=== PATIENT | female | born 1990 | race Hispanic/Latino ===

== ENCOUNTER 2016-10-13 10:23 | Inpatient (IN) | payer MEDICAID ==
[~2016-10-13] VITALS: Ht 152.4 cm; Wt 65.8 kg
[~2016-10-13 10:23] MED LIST: FERR250C3 PO; IBUP-1149 PO; NOMED; PREN1TAB60 PO; [UNRECOGNIZED DRUG - CODE] PO
[2016-10-13] MEDS ORDERED: Lactated Ringer's 1,000 ML IV PRN ×2 (11:22→12:18)
[2016-10-13] MEDS ORDERED: fentaNYL-PF 50 mCg/mL 2 mL Inj IVPUSH PRN ×2 (11:25→12:30)
[2016-10-13] MEDS ORDERED: Oxytocin 30 Units/500 mL LR 30 UNITS in IV Premix 1 EACH IV PRN ×2 (11:25→15:45)
[2016-10-13] MEDS ORDERED: Methylergonovine 0.2 mg/mL Inj IM PRN (11:25)
[2016-10-13] MEDS ORDERED: Oxytocin 10 Unit/mL Inj IM PRN (11:25)
[2016-10-13] MEDS ORDERED: Hemorrhage Kit, Post Partum XX ONE ×3 (11:25→15:45)
[2016-10-13] MEDS ORDERED: Sodium Chloride LOK Flush 10 mL Syringe IVFLUSH PRN (11:25)
[2016-10-13] MEDS ORDERED: Carboprost 250 mCg/mL Inj IM PRN (11:25)
[2016-10-13 12:01] LABS: Mean Corpuscular Hemoglobin 30.2 pg (27.0-35.0)
[2016-10-13] MEDS ORDERED: Lactated Ringer's 500 ML IV ONE (12:28)
--- NOTE | 2016-10-13 12:28 | PCM.HPOB ---
Subjective Date of Service: Oct 13, 2016 Referring Provider: Admitting Physician: Carla Franco MD Primary Care Physician: Judy Adler PA-C Attending Physician: Carla Franco MD Chief Complaint contractions. History of Present History of Present Illness 25 Yo at 29 w1d by CONCHITA 10/18/16 by 9 weeks US. 1. Limited parental care. 2. elevated 1 hr GTT , 3 hrs GTT WNL. 3. Transfer of care at 36 weeks form . 4. Hx of E coli in , ALYSSA negative. 5. GBS negative. Regular contractions cervix was 4 CM/BBW at presentation and in reassessment cervix 5-6/80%/BBOW Cephalic presentation confirmed with US. Past Medical History Obstetrical History: Hx of 4 with no complications Weight 7-8.5 lb. Had epidural in the last delivery. Gynecologic History: menarche at age 14 regular menses. Pap ASCUS 1015. Medical History: denies Asthma , HTN or DM Surgical History: none Hx Tobacco Use: No Hx Alcohol Use: No Hx Substance Use: No Past Family History Family History Sister has twins. Review of Systems ROS 11 points ROS is negative except for the items in HPI. Allergy Coded Allergies: No Known Allergies (Verified Allergy, Unknown, 11/29/14) Exam Vital Signs 102/66, HR 86, T 36.5, RR 16 Exam 130 moderate variability positive accelerations and no decelerations. Category 1 [place] contractions every 1-2 min Constitutional: Well-developed HEENT: Atraumatic Heart: Normal S1, Normal S2 Extremities: Pulses Palpable x4, No Edema Neurological/Psychiatric: Alert, Oriented X3 Neuro: Normal DTRs Additional Information 5-6cm/80%/-3/BBOW Labs/Diagnostics Maternal Blood Type: O (positive) Hx Rho(D) Immune Globulin: No Group B Strep Results: Negative (09/18/16) Rubella: Immune Additional Information RPR negative, HbsAg negative, HIV negative. 3 hrs GTT(81, 115, 152) pap smear 09.18.16 WNL OB Intrapartum Assessment/Plan Assessment 25 Yo at 29 w1d by CONCHITA 10/18/16 by 9 weeks US. 1. Limited parental care. 2. elevated 1 hr GTT , 3 hrs GTT WNL. 3. Transfer of care at 36 weeks form . 4. Hx of E coli in , ALYSSA negative. 5. GBS negative. Pain Management: admit with orders and labs. Carla Franco MD Oct 13, 2016 12:28
[2016-10-13] MEDS ORDERED: EPHEDrine Sulfate 50 mg/mL Inj IVPUSH PRN (12:30)
[2016-10-13] MEDS ORDERED: Phenylephrine/NS-PF 100 mCg/mL 5 mL Syringe IVPUSH PRN (12:30)
[2016-10-13] MEDS ORDERED: fentaNYL 2 mCg/mL-Bupiv 0.125% 100 ML EPIDURAL SCH (12:30)
[2016-10-13] MEDS ORDERED: Atropine 1 mg/10 mL (Code) Syringe IVPUSH PRN (12:30)
[2016-10-13] MEDS ORDERED: Ondansetron 2 mg/mL 2 mL Inj IVPUSH PRN (12:30)
[2016-10-13] MEDS: Lactated Ringer's 1,000 ML IV SCH ×2 (12:31→13:10)
--- NOTE | 2016-10-13 12:31 | PCM.HPANE ---
Patient Data Surgeon Admitting Provider:Carla Franco MD Attending Provider:Carla Franco MD Primary Care Physician:Judy Adler PA-C Other Provider:Dennis Barrera Anesthesia Reason for Visit Early Labor EARLY LABOR Ht/WT & BMI Body Mass Index Allergies Coded Allergies: No Known Allergies (Verified Allergy, Unknown, 11/29/14) Diabetes History Hx Diabetes?: No Medications Hypertension Medication: No Home Meds Incl Beta Sandro: No Active Scripts IBUPROFEN-Expunged Drug, Do Not Renew! 600 Mg [id number] Mg PO Q6HP #20 TAB FOR FEVER OR PAIN Prov:Hieu Arguello MD 02/02/13 Reported Medications Amoxicillin 250 Mg Smin565 Mg PO 02/18/13 Pnv With Ca,No.72/Iron/Fa-Expunged Drug, Do N ( Plus-Expunged Drug, Do Not Renew!)1 Each Tablet1 Each PO 02/18/13 Ferrous Sulfate-Expunged Drug, Do Not Renew! 250 Mg Capsule.sa325 Mg PO 02/18/13 No Historical Medication Ea 05/25/12 History Hx of Heart Problems?: No Hx of Respiratory Problem?: No Hx Alcohol Use: NoHx Substance Use: No Smoking Status: Never Smoker Stop/Bang Risk Assessment Category Category 1A: Patient has history of documented sleep apnea, and HAS NOT received any narcotic, sedative or anesthesia administration during this stay. Category 1B: Patient has history of documented sleep apnea, and HAS received any narcotic , sedative or anesthesia administration during this stay Category 2: Patient has SUSPECTED Obstructive Sleep Apnea, and HAS received any narcotic , sedative or anesthesia administration during this stay. Category 3: Patient has SUSPECTED Obstructive Sleep Apnea and HAS NOT received narcotic, sedative or anesthesia administration during this stay. Category 4: Outpatient in Procedural Areas with known sleep apnea or who screen positive for High Risk via the STOP/BANG questionnaire. Exam Exam General Appearance: Alert, Oriented X3, Cooperative, Moderate Distress (with contractions) HEENT/AIRWAY: MP 1 Lungs: Normal Air Movement Heart: Exam Unremarkable Meds/Labs/Diagnostics Labs Test 10/13/16 11:15 Plan Impression Patient chart reviewed, patient interviewed and anesthestic plan with risks, benefits, and alternatives discussed, and informed consent obtained. ASA Physical Status: ASA1 Normal Healthy Anesthetic Plan: Epidural Bene/Risks/Altern/Consents: Yes HP Complete Prior to Induction: Yes Hugh Aguila MD Oct 13, 2016 12:31
[2016-10-13] MEDS ORDERED: Lactated Ringer's 1,000 ML IV SCH (15:41)
[2016-10-13] MEDS ORDERED: oxyCODONE-Acetamin 5-325 mg Tablet PO PRN (15:45)
[2016-10-13] MEDS ORDERED: Witch Hazel-Glycerin Pads TOPICAL PRN (15:45)
[2016-10-13] MEDS ORDERED: LANOlin HPA 7 Gm Ointment TOPICAL PRN (15:45)
--- NOTE | 2016-10-13 16:02 | PCM.DIOB ---
Obstetrical Disch Instruction Date of Service: Oct 14, 2016 Dates of Hospitalization Date of Hospital Admission Oct 13, 2016 at 10:54 Providers Admitting Physician: Carla Franco MD Primary Care Physician: Judy Adler PA-C Attending Physician: Carla Franco MD Discharge Diagnosis Discharge Diagnosis Status post spontaneous vaginal delivery. Post Operative diagnosis Status post spontaneous vaginal delivery. Problems: Diet Discharge Diet: No restrictions Activity Discharge Activity-General: Pelvic Rest for 6 weeks (No sex, no douching and no tampons. ), Be up and about, Balance rest and activity, No lifting >10 pounds for 4-6 weeks Dressing and Incisional Care Hygiene: May shower, Perineal care, Sitz bath, Dermoplast spray, Witch Stormy pads Follow Up Plan Follow-up Provider (F9): Carla Franco MD Follow-up appointment: Weeks (2 ) Call your provider for: Fever or Chills, Shortness of breath, Heavy vaginal bleeding, Heavy bleeding, Epigastric pain, Excessive constipation, Vaginal discomfort, Red painful breasts, Other (Headache, change in vision, nausea or vomiting , leg swelling or pain. ) Carla Franco MD Oct 13, 2016 16:02
[2016-10-13] MEDS ORDERED: DOCU-41 PO (16:06)
[2016-10-13] MEDS ORDERED: IBUP-1827 PO (16:06)
[2016-10-13] MEDS ORDERED: OXYC1TAB24 PO (16:06)
--- NOTE | 2016-10-13 16:08 | PCM.DC.OB ---
Obstetrical Discharge Summary Date of Service Oct 14, 2016 Date of hospital admission Oct 13, 2016 at 10:54 Date of Discharge: Oct 14, 2016 Providers Admitting Physician: Leon Saeed MD Primary Care Physician: Judy Adler PA-C Attending Physician: Leon Saeed MD Diagnosis at Time of Discharge Status post spontaneous vaginal delivery. Mild anemia Problems: Brief History and Physical: 25 YO was admitted at 39 w1d by CONCHITA 10/18/16 by 9 weeks US with active labor and history of: 1. Limited parental care. 2. elevated 1 hr GTT , 3 hrs GTT WNL. 3. Transfer of care at 36 weeks form . 4. Hx of E coli in , ALYSSA negative. 5. GBS negative. Regular contractions cervix was 4 CM/BBW at presentation and in reassessment cervix 5-6/80%/BBOW Cephalic presentation confirmed with US. Hospital Course: Patient progressed spontaneously in labor. She had spontaneous rupture of membranes at 1315. Cervix was 8 cm at 1338 and 90% effaced and -2. The patient was comfortable on epidural until she had a precipitous vaginal delivery on October 13, 2016 at 1518 Outcome: Outcome is a male infant , weight 3791g with Apgars 9 at one minute and 9 at five minutes. No nuchal cord. See delivery note for details. Discharge Day Exam: 10/14/2016 Lochia: Normal Pain Management: PO pain meds, Good Pain Control Gastrointestinal: Good Appetite, No N/V Postop Activity: Ambulate without Assist OB Exam Exam Vital Signs Vital Signs VS: 82/53, pulse 65, RR 16, T 36.4, PSO2 100% on RA. Exam Abdomen: Fundus firm Extremities: No edema Lungs: Clear to Auscultation Heart: Normal S1, Normal S2 General: Alert, Oriented X3 Labs: Maternal Blood Type: O (positive) Group B Strep Results: Negative (09/18/16) Rubella: Immune Additional Information RPR negative, HbsAg negative, HIV negative. 3 hrs GTT(81, 115, 152) pap smear 1..17 WNL Laboratory Tests 72 Hours Test 10/13/16 11:15 10/14/16 06:33 White Blood Count 7.9th/mm3 (3.8-10.1) 9.4th/mm3 (3.8-10.1) Red Blood Count 3.98mil/mm3 (3.90-5.20) 3.53mil/mm3 (3.90-5.20) Hemoglobin 12.0g/dL (12.0-15.6) 10.8g/dL (12.0-15.6) Hematocrit 37.0% (35.0-46.0) 33.1% (35.0-46.0) Mean Corpuscular Volume 93.0fL (81-100) 93.8fL (81-100) Mean Corpuscular Hemoglobin 30.2pg (27.0-35.0) 30.6pg (27.0-35.0) Mean Corpuscular Hemoglobin Concent 32.4% (32.0-37.0) 32.6% (32.0-37.0) Red Cell Distribution Width 15.1% (12.3-15.4) 15.0% (12.3-15.4) Platelet Count 217bil/L (150-400) 193bil/L (150-400) Ascorbic Acid (Vitamin C) 250 Mg Tab.chew 500 MG PO DAILY Prescribed by: LEON SAEED MD Docusate Sodium (Colace) 100 Mg Capsule 100 MG PO DAILY Prescribed by: LEON SAEED MD Ferrous Sulfate (Ferrous Sulfate) 325 Mg Tablet 325 MG PO DAILY Prescribed by: LEON SAEED MD Ibuprofen (Ibuprofen) 600 Mg Tablet 600 MG PO Q6H PRN PRN For Mild Pain Prescribed by: LEON SAEED MD Pnv With Ca,No.72/Iron/Fa-Expunged Drug, Do N ( Plus-Expunged Drug, Do Not Renew!) 1 Each Tablet 1 EACH PO (Reported) oxyCODONE-Acetaminophen 5-325 mg (oxyCODONE-Acetaminophen 5-325 mg) 1 Each Tablet 1-2 TAB PO Q4H PRN PRN For Pain Prescribed by: LEON SAEED MD Discontinued Medications Amoxicillin (Amoxicillin) 250 Mg Chew 500 MG PO (Reported) Ferrous Sulfate-Expunged Drug, Do Not Renew! (Ferrous Sulfate-Expunged Drug, Do Not Renew!) 250 Mg Capsule.sa 325 MG PO (Reported) IBUPROFEN-Expunged Drug, Do Not Renew! (IBUPROFEN-Expunged Drug, Do Not Renew!) 600 Mg Tablet 600 MG PO Q6HP FOR FEVER OR PAIN Prescribed by: BANDAR BROCK MD No Historical Medication (No Historical Medication) Ea (Reported) Disposition Disposition: home. Discharge status: stable. Diet Discharge Diet: No restrictions Activity Discharge Activity-General: Be up and about, Balance rest and activity, No lifting >10 pounds for 4-6 weeks. Pelvic rest for 6 weeks. Dressing and Incisional Care Hygiene: May shower, Perineal care, Sitz bath, Dermoplast spray, Witch Stormy pads Follow Up Plan Follow-up Provider (F9): Leon Saeed MD Follow-up appointment: Weeks (2 ) Call your provider for: Fever or Chills, Shortness of breath, Heavy vaginal bleeding, Heavy bleeding, Epigastric pain, Excessive constipation, Vaginal discomfort, Red painful breasts, Other (Headache, change in vision, nausea or vomiting , leg swelling or pain. ) Leon Saeed MD Oct 13, 2016 16:08
[2016-10-13] MEDS ORDERED: Sodium Chloride LOK Flush 10 mL Syringe IVFLUSH SCH (16:30)
--- NOTE | 2016-10-13 16:34 | OP ---
[address] [address] OPERATIVE REPORT PATIENT: DARLENE HUMPHREY : 1990 MR#: [id number] ADMIT: 10/13/2016 JOB ID: [id number] DATE OF SURGERY: 10/13/2016 PREOPERATIVE DIAGNOSIS(ES): Intrauterine at 39 weeks and 1 day with expected date of delivery of October 18, 2016. POSTOPERATIVE DIAGNOSIS(ES): Intrauterine at 39 weeks and 1 day with expected date of delivery of October 18, 2016. PROCEDURE: Spontaneous vaginal delivery. SURGEON: Carla Franco MD OLERICULTURIST: Dr. Paramjit Tamayo, Resident ESTIMATED BLOOD LOSS: 150 mL. COMPLICATIONS: None. PROCEDURE: This is a 25-year-old 5, para 4-0-0-4 at 39 weeks and 1 day with CONCHITA of October 18, 2016 by 9 week ultrasound presented in active labor. GBS negative status. Cervix on admission was 4 cm, 80%, -4. That was at 11 a.m. Then she progressed in labor to be 5-6 cm. One hour later she received epidural. Then she had spontaneous rupture of membranes at 1315. Cervix was 8 cm at 1338 and 90% effaced and -2. The patient was comfortable on epidural until she had a precipitous vaginal delivery on October 13, 2016 at 1518 via spontaneous vaginal delivery over an intact perineum under epidural anesthesia. Nurse Glenda Tamayo RN was present in the room. She called for help and Dr. Paramjit Tamayo presented for payroll administrative assistant. I presented to the room. The cord was clamped and cut and was placed on the maternal abdomen. Cord blood was collected for gases. Position at delivery was right occiput transverse. Outcome is a male infant , weight 3791g with Apgars 9 at one minute and 9 at five minutes. No nuchal cord. Perineum was examined and superficial skin laceration was noted with no repair needed. The placenta was delivered spontaneously intact at 1525. Placenta was examined intact with a three-vessel cord. Uterine fundal massage was performed. Oxytocin was started. 400 mcg of misoprostol was placed rectally for some uterine atony. Bleeding slowed down at this time. Estimated blood loss 150 mL. All instruments, needles and sponge counts were correct x2. I, Carla Franco MD, was present for cord clamping and placental delivery. MTDD
--- NOTE | 2016-10-13 22:54 | PCM.ANEP2 ---
Post Anesthesia Evaluation ASA/CMS Post Anesthesia VS in Patient's Normal Range?: Yes Resp Stable; Airway Patent?: Yes CV Function & Hydration Stable: Yes Mental Status Recovered?: Yes Pain control Satisfactory?: Yes N/V Control Satisfactory?: Yes Hugh Aguila MD Oct 13, 2016 22:54
[2016-10-14 06:58] LABS: Mean Corpuscular Hemoglobin 30.6 pg (27.0-35.0); Mean Corpuscular Volume 93.8 fL (81-100)
[2016-10-14] MEDS ORDERED: FERR-83 PO (09:35)
[2016-10-14] MEDS ORDERED: ASCO250T7 PO (09:37)
[2016-10-14 13:42] VITALS: BP 103/50; PULSE 61; RESP 16
== END 2016-10-14 15:28 | disposition home or self-care (01) | DRG 774 ==
LOC: FBCO 10:23 → FBC 10:54
PROVIDERS: ADMIT Obstetrics & Gynecology; ATTEND Obstetrics & Gynecology
PROC: 10E0XZZ Delivery of Products of Conception, External Approach (ICD-10-PCS; principal; 2016-10-13)
DX: O72.1 Other immediate postpartum hemorrhage (principal); Z37.0 Single live birth; Z3A.39 39 weeks gestation of pregnancy